=== PATIENT | female | born 1995 | race Two or more races ===

== ENCOUNTER → 2023-06-22 | Emergency (ER) | payer OTHER ==
[~2023-06-22] VITALS: Ht 162.6 cm; Wt 61.7 kg
[2023-06-22 18:23] LABS: HEMATOCRIT 37.8 % (36.0-45.00); HEMOGLOBIN 12.7 g/dL (12.0-15.00); MEAN CELL VOLUME 94.8 fL (80.00-100.00); MEAN CORPUSCULAR HEMOGLOBIN 31.9 pg (27.00-32.0); MEAN CORPUSCULAR HGB CONC 33.6 g/dl (32.0-36.0); PLATELET COUNT 173 K/uL (150-450); RED BLOOD COUNT 3.99 M/uL (4.00-6.00); RED CELL DISTRIBUTION WIDTH 13.1 % (11.5-14.5)
[2023-06-22 18:51] LABS: ALBUMIN 3.6 gm/dL (3.4-5.0); BILIRUBIN TOTAL 1.03 mg/dL (0.3-1.2); CALCIUM 9.1 mg/dL (8.5-10.1); CREATININE SERUM 0.72 mg/dL (0.55-1.02); GFR 95.77; GLOBULINA 3.5 G/DL (2.4-3.5); POTASSIUM 3.97 mEq/L (3.5-5.1); TOTAL PROTEIN 7.1 gm/dL (6.4-8.2)
== END | disposition home or self-care (01) ==
LOC: ER 16:25
PROVIDERS: General Practice
DX: O20.8 Other hemorrhage in early pregnancy (principal); Z3A.01 Less than 8 weeks gestation of pregnancy

== ENCOUNTER 2024-01-25 11:07 | Outpatient (CLI) | payer OTHER ==
[~2024-01-25 11:07] MED LIST: PRENATAL TABLE1 EAC1 PO; PROMETRIUM200 MG PO
== END 2024-01-25 13:06 | disposition home or self-care (01) ==
LOC: NST 11:07
PROVIDERS: ATTEND Obstetrics & Gynecology
DX: Z34.83 Encounter for supervision of other normal pregnancy, third trimester (principal)

== ENCOUNTER 2024-01-25 11:56 | Inpatient (IN) | payer OTHER ==
[~2024-01-25] VITALS: Ht 162.6 cm; Wt 66.2 kg
[2024-02-07 13:08] VITALS: BP 105/65
[2024-02-07 13:43] LABS: HEMATOCRIT 34.4 % (36.0-45.00); HEMOGLOBIN 11.1 g/dL (12.0-15.00); MEAN CELL VOLUME 87.7 fL (80.00-100.00); MEAN CORPUSCULAR HEMOGLOBIN 28.4 pg (27.00-32.0); MEAN CORPUSCULAR HGB CONC 32.4 g/dl (32.0-36.0); PLATELET COUNT 149 K/uL (150-450); RED BLOOD COUNT 3.93 M/uL (4.00-6.00)
[2024-02-07 13:49] LABS: RED CELL DISTRIBUTION WIDTH 17.1 % (11.5-14.5)
[2024-02-07] MEDS ORDERED: MORPHINE SULFATE 4 MG/ML CARTRIDGE IV PRN (14:00)
[2024-02-07] MEDS ORDERED: OXYTOCIN 500 ML IV SCH (14:00)
[2024-02-07 14:07] LABS: INR 0.94; PARTIAL THROMBOPLASTIN TIME 22.3 SECONDS (22.0-34.0)
[2024-02-07 14:25] LABS: PROTHROMBIN TIME 10.3 SECONDS (9.0-11.5)
[2024-02-07 14:30] LABS: BILIRUBIN TOTAL 1.61 mg/dL (0.3-1.2); CALCIUM 9.2 mg/dL (8.5-10.1); CREATININE SERUM 0.52 mg/dL (0.55-1.02); GFR 139.41; POTASSIUM 3.96 mEq/L (3.5-5.1)
[2024-02-07] MEDS ORDERED: ERYTHROMYCIN BASE 1 GM TUBE OP ONE (15:32)
[2024-02-07] MEDS ORDERED: LIDOCAINE HCL 1% 10ML VIAL ONE (15:33)
[2024-02-07] MEDS ORDERED: CHLORHEXIDINE GLUCONATE 120 ML BOTTLE TOP ONE (15:33)
[2024-02-07] MEDS ORDERED: OXYTOCIN 20 UNITS/1000ML RL PIGGYBAG IV ONE (15:33)
[2024-02-07 16:23] VITALS: BP 110/64
[2024-02-07 19:48] VITALS: BP 104/58
[2024-02-07 20:56] LABS: PH,URINE 6.5 (5.0-8.0); URINE APPEARANCE Clear; URINE BACTERIA 70.5 uL (0.0-1933); URINE BILIRRUBIN Negative (NEGATIVE); URINE BLOOD Negative; URINE COLOR Yellow; URINE EPITHELIAL CELLS 2.7 uL (0.0-38.8); URINE GLUCOSE Negative (NEGATIVE); URINE KETONE >=160 (NEGATIVE); URINE LEUKOCYTE Negative; URINE NITRATE Negative; URINE PROTEIN Negative (NEGATIVE); URINE RBC 2.5 uL (0.0-20.8); URINE WBC 2.6 uL (0.0-23.2)
[2024-02-07 23:39] VITALS: BP 99/54
[2024-02-08] VITALS (9 sets, daily range): BP systolic 93–124; BP diastolic 44–67; O2SAT 99
[2024-02-08] MEDS ORDERED: OXYTOCIN 500 ML IV ONE (08:45)
[2024-02-08] MEDS ORDERED: NALOXONE HCL 0.4 MG/ML AMPUL ONE (14:06)
[2024-02-08] MEDS ORDERED: NALOXONE HCL 0.4 MG/ML AMPUL IM STA (15:28)
[2024-02-08] MEDS ORDERED: OXYTOCIN 1,000 ML IV SCH (15:30)
[2024-02-08] MEDS ORDERED: CHLORHEXIDINE GLUCONATE 120 ML BOTTLE TOP ONE (15:30)
[2024-02-08] MEDS ORDERED: ERYTHROMYCIN BASE OPHT 1GM EACH TUBE OP ONE (15:30)
[2024-02-08] MEDS ORDERED: OXYTOCIN 1,000 ML IV ONE (15:45)
[2024-02-08] MEDS ORDERED: IBUprofen 400 MG TABLET PO PRN (15:45)
[2024-02-08] MEDS ORDERED: CHLORHEXIDINE GLUCONATE 120 ML BOTTLE TOP SCH (15:45)
[2024-02-09 02:34] VITALS: BP 90/60
[2024-02-09 08:22] LABS: HEMATOCRIT 29.8 % (36.0-45.00); HEMOGLOBIN 9.7 g/dL (12.0-15.00); MEAN CELL VOLUME 87.8 fL (80.00-100.00); MEAN CORPUSCULAR HEMOGLOBIN 28.7 pg (27.00-32.0); MEAN CORPUSCULAR HGB CONC 32.7 g/dl (32.0-36.0); PLATELET COUNT 131 K/uL (150-450); RED BLOOD COUNT 3.39 M/uL (4.00-6.00); RED CELL DISTRIBUTION WIDTH 17.3 % (11.5-14.5)
[2024-02-09 09:00] VITALS: BP 93/59
[2024-02-09] MEDS ORDERED: PNV,CALCIUM 72/IRON/FOLIC ACID 1 TAB TABLET PO SCH (09:00)
[2024-02-09 16:00] VITALS: BP 95/60
[2024-02-09 22:00] VITALS: BP 96/62
[2024-02-10 02:19] VITALS: BP 100/69
[2024-02-10 10:10] VITALS: BP 94/62
== END 2024-02-10 17:02 | disposition home or self-care (01) | DRG 807 ==
LOC: LDR 02-07 12:26 → OB/GYN 02-08 15:53 → LDR 02-16 11:55
PROVIDERS: Obstetrics & Gynecology Gynecology; ADMIT Obstetrics & Gynecology; ATTEND Obstetrics & Gynecology
PROC: 4A1HXCZ Monitoring of Products of Conception, Cardiac Rate, External Approach (ICD-10-PCS; 2024-02-07)
PROC: 10E0XZZ Delivery of Products of Conception, External Approach (ICD-10-PCS; principal; 2024-02-08)
DX: O80 Encounter for full-term uncomplicated delivery (principal); Z37.0 Single live birth; Z3A.38 38 weeks gestation of pregnancy; Z20.822 Contact with and (suspected) exposure to COVID-19